=== PATIENT | male | born 1945 | race African-American/Black ===

== ENCOUNTER 2017-07-03 19:00 | Emergency (ER) | payer OTHER, BC ==
[2017-07-03 19:20] VITALS: BP 190/80; PULSE 74; TEMP 98.3; BMI 44.0
[2017-07-03] MEDS ORDERED: KETOROLAC TROMETHAMINE 30 MG/1 ML VIAL IM ONE (19:36)
[2017-07-03] MEDS ORDERED: KETOROLAC TROMETHAMINE 30 MG/1 ML VIAL ONE (19:37)
--- NOTE | 2017-07-03 19:41 | PDOC ---
History of Present Illness - General Chief Complaint: Back Pain Stated Complaint: BACK PAIN Time Seen by Provider: 07/03/17 19:29 History Source: Patient - History of Present Illness Occurred: reports: yesterday Severity: reports: moderate Pain Location: reports: back Past History - Past Medical History Allergies/Adverse Reactions: Allergies Allergy/AdvReac Type Severity Reaction Status Date / Time No Known Allergies Allergy Verified 07/03/17 19:20 Home Medications: Ambulatory Orders Atorvastatin Ca [Lipitor -] 20 mg PO HS 06/16/13 Esomeprazole Mag Trihydrate [Nexium] 40 mg PO DAILY 06/16/13 Hctz 25Mg/Triamterene [Dyazide 25/37.5 -] 1 cap PO DAILY 06/16/13 Multivitamin [Multivitamins] 1 tab PO DAILY 06/16/13 Potassium Chloride 8 meq PO DAILY 06/16/13 Timolol 0.5% [Timoptic 0.5%] 1 drop OU DAILY 06/16/13 Verapamil HCl ER [Calan Sr] 240 mg PO DAILY 06/16/13 Aspirin 81 mg PO ASDIR 07/03/17 Cyclobenzaprine HCl [Flexeril -] 10 mg PO TID #9 tablet 07/03/17 Hydralazine HCl 25 mg PO ASDIR 07/03/17 Ibuprofen [Motrin -] 2 tab PO QID #30 tablet 07/03/17 Losartan 50Mg/Hctz 12.5MG [Hyzaar -] 1 tab PO DAILY 07/03/17 Meloxicam 15 mg PO ASDIR 07/03/17 Tamsulosin HCl 0.4 mg PO ASDIR 07/03/17 Triamterene/Hydrochlorothiazid [Triamterene-Hctz 37.5-25 mg Cp] 1 each PO ASDIR 07/03/17 Anemia: Yes Asthma: No Cancer: No Cardiac Disorders: Yes (VALVE PROLAPSE) CVA: No COPD: No Dementia: No GI Disorders: Yes (gerd,internal hemorrhoids,diaphragmatic hernia,dysphagia, gastritis) Disorders: No HTN: Yes Hypercholesterolemia: Yes Liver Disease: No Seizures: No Thyroid Disease: No - Surgical History Abdominal Surgery: No Appendectomy: No Cardiac Surgery: Yes ([facility] cath.10/2012-[facility]) Cholecystectomy: No Lung Surgery: No Neurologic Surgery: No Orthopedic Surgery: No - Suicide/Smoking/Psychosocial Hx Smoking Status: Yes Smoking History: Never smoked Have you smoked in the past 12 months: No Number of Cigarettes Smoked Daily: 0 Information on smoking cessation initiated: No Hx Alcohol Use: No Drug/Substance Use Hx: No Hx Substance Use Treatment: No Review of Systems - Review of Systems Constitutional: No: Chills, Fever Respiratory: No: Cough, Shortness of Breath Cardiac (ROS): No: Chest Pain, Lightheadedness, Palpitations, Syncope ABD/GI: No: Abdominal cramping : No: Burning, Dysuria, Discharge, Flank Pain, Hematuria Musculoskeletal: Yes: Back Pain. No: Neck Pain Neurological: No: Numbness, Tingling, Weakness *Physical Exam - Vital Signs Last Vital Signs Temp Pulse Resp BP Pulse Ox 98.3 F 74 18 190/80 98 07/03/17 19:16 07/03/17 19:16 07/03/17 19:16 07/03/17 19:16 07/03/17 19:16 - Physical Exam General Appearance: Yes: Appropriately Dressed. No: Apparent Distress HEENT: positive: Normal Voice Neck: positive: Supple Respiratory/Chest: positive: Lungs Clear, Normal Breath Sounds. negative: Respiratory Distress Cardiovascular: positive: Regular Rate, S1, S2 Gastrointestinal/Abdominal: positive: Soft. negative: Tender, Pulsatile Mass Musculoskeletal: positive: Normal Inspection, Vertebral Tenderness (to R mid back). 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 Patient reports gradual onset of right mid back pain that started yesterday, described as tight and constant and worse when he lies supine. Taking 400-600 motrin with no relief. Denies any nausea, vomiting, dysuria, hematuria, fever or chills. States he might have had similar pain in the past. Patient denies any chest pain, shortness of breath or palpitations. See exam Thoracic back pain, possibly recurrent Suspect possibly MSK, no e/o aortic pathology per hx and exam, no CP/SOB, no e/ o infxn, no trauma DJD and spondylosis on imaging in past -dc w/ pain control and pmd f/u 07/03/17 19:42 *DC/Admit/Observation/Transfer Diagnosis at time of Disposition: Thoracic back pain Qualifiers: Chronicity: acute Back pain laterality: right Qualified Code(s): M54.6 - Pain in thoracic spine - Discharge Dispostion Condition at time of disposition: Improved - Prescriptions Prescriptions: Cyclobenzaprine HCl [Flexeril -] 10 mg PO TID #9 tablet Ibuprofen [Motrin -] 2 tab PO QID #30 tablet - Referrals Referrals: Mehnaz Carreno MD [Primary Care Provider] - - Patient Instructions Printed Discharge Instructions: DI for Thoracic Back Pain Additional Instructions: The cause of your back pain is possibly musculoskeletal, but you will need to follow-up with your primary doctor for further evaluation if pain persists. In the meantime take medications as prescribed. Return to ER for worsening of symptoms as discussed in ED - Post Discharge Activity
== END 2017-07-03 19:47 | disposition home or self-care (01) ==
LOC: JERFT 19:00
PROC: 3E0233Z Introduction of Anti-inflammatory into Muscle, Percutaneous Approach (ICD-10-PCS; principal; 2017-07-03)
DX: M54.6 Pain in thoracic spine (principal); I10 Essential (primary) hypertension; E78.00 Pure hypercholesterolemia, unspecified; Z87.19 Personal history of other diseases of the digestive system; Z87.39 Personal history of other diseases of the musculoskeletal system and connective tissue
CPT/HCPCS: 96372; 99281-25